=== PATIENT | female | born 1995 | race Caucasian/White ===

== ENCOUNTER 2025-02-10 07:15 | Observation (INO) | payer OTHER ==
[~2025-02-10] VITALS: Ht 154.9 cm; Wt 56.7 kg
[2025-02-10] VITALS (22 sets, daily range): BP systolic 84–102; BP diastolic 44–67
[2025-02-10] MEDS ORDERED: Ketorolac Tromethamine 30mg Vial IV ONE (07:50)
[2025-02-10] MEDS ORDERED: Ondansetron HCl 2 MG / ML 2ML Vial IV ONE (07:50)
[2025-02-10] MEDS ORDERED: NS 1,000 ML IV SCH ×2 (07:50→13:30)
[2025-02-10 08:08] LABS: BASOPHILS ABSOLUTE AUTO 0.04 K/mm3 (0.00-0.23); BASOPHILS PERCENT AUTO 0 % (0-2); EOSINOPHILS PERCENT AUTO 0 % (0-6); Hematocrit 41.4 % (33.0-51.0); Hemoglobin 15.3 g/dL (11.5-16.0); IMMATURE GRAN ABSOLUTE AUTO 0.06 K/mm3 (0.00-0.10); IMMATURE GRAN PERCENT AUTO 0 % (0-1); LYMPHOCYTES ABSOLUTE AUTO 1.37 K/mm3 (0.84-5.20); LYMPHOCYTES PERCENT AUTO 7 % (21-46); MONOCYTES ABSOLUTE AUTO 1.72 K/mm3 (0.16-1.47); MONOCYTES PERCENT AUTO 9 % (4-13); Mean Corpuscular HGB 31.8 pg (26.0-34.0); Mean Corpuscular Volume 86 fL (80-100); Mean Platelet Volume 9.4 fL (9.1-12.4); NEUTROPHILS PERCENT AUTO 84 % (41-73); Platelet Count 282 K/mm3 (150-400); RDW Coefficient Variation 11.9 % (11.7-14.2); RDW Standard Deviation 37.4 fL (35.1-46.3); Red Blood Cell Count 4.81 M/mm3 (3.80-5.20); White Blood Cell Count 20.19 K/mm3 (4.00-11.30)
[2025-02-10 08:30] LABS: Albumin, Blood 3.8 g/dL (3.4-5.0); Albumin/Globulin Ratio 1.1 (0.8-1.8); Bilirubin, Direct 0.3 mg/dL (0.0-0.3); Bilirubin, Indirect 0.9 mg/dL (0.1-0.7); Bilirubin, Total 1.2 mg/dL (0.1-1.0); Bun/Creatinine Ratio 12.8 (12.0-20.0); Calcium, Blood 9.1 mg/dL (8.5-10.1); Creatinine, Blood 0.62 mg/dL (0.40-1.00); Globulin, Blood 3.5 g/dL (2.2-4.0); Potassium, Blood 3.4 mmol/L (3.5-5.5); Total Protein, Blood 7.3 g/dL (6.4-8.2)
[2025-02-10] MEDS ORDERED: Piperacillin/Tazobactam Sod 3.375 GM in NS 100 ML IV ONE (10:00)
[2025-02-10] MEDS ORDERED: Morphine Sulfate 4 MG/1 ML Injection IV ONE (10:05)
[2025-02-10] MEDS ORDERED: FentaNYL Citrate 50 MCG/ML 2 ML Injection ONE ×2 (11:52→13:16)
[2025-02-10] MEDS ORDERED: propofoL 20 ML IV ONE (11:52)
[2025-02-10] MEDS ORDERED: Rocuronium Bromide 10 MG/ML 5ML Injection IV ONE (11:53)
[2025-02-10] MEDS ORDERED: SuccINYLCHOLINE Chloride 100 MG/5 ML 5MLSYR ONE (11:53)
[2025-02-10] MEDS ORDERED: Dexamethasone Sod Phos 10 MG/ML 1ML VIAL ONE (11:53)
[2025-02-10] MEDS ORDERED: Ondansetron HCl 2 MG / ML 2ML Vial ONE (11:53)
[2025-02-10] MEDS ORDERED: Bupivacaine 0.5% HCl 5 MG/ML 30MLVIAL ONE (12:00)
--- NOTE | 2025-02-10 12:13 | NUR ---
PT INTO PREOP FOR PRE PROCEDURE. BELONGINGS WITH PARTNER. VSS. ON RA. IV PATENT. RESTING EYES.
[2025-02-10] MEDS ORDERED: Lactated Ringer's 1,000 ML IV ONE ×2 (12:14→13:54)
[2025-02-10] MEDS ORDERED: Midazolam HCl 1MG / ML 2ML Vial ONE (12:42)
[2025-02-10] MEDS ORDERED: Ketorolac Tromethamine 30mg Vial ONE (13:08)
[2025-02-10] MEDS ORDERED: Sugammadex Sodium 200 MG/2ML SDV (100 MG/ML) ONE (13:13)
[2025-02-10] MEDS ORDERED: OxyCODONE HCL 5 MG TAB PO PRN (13:30)
[2025-02-10] MEDS ORDERED: Zolpidem Tartrate 10 MG Tab PO PRN (13:30)
[2025-02-10] MEDS ORDERED: FLU VACC TS2024-25(6MOS UP)/PF 45 MCG/0.5 ML SYRINGE IM ONE (13:30)
[2025-02-10] MEDS ORDERED: Ondansetron HCl 2 MG / ML 2ML Vial IV PRN (13:30)
[2025-02-10] MEDS ORDERED: HYDROmorphone HCl/Pf 1MG SYR IV PRN (13:35)
[2025-02-10] MEDS ORDERED: Ketorolac Tromethamine 30mg Vial IV PRN (13:40)
[2025-02-10] MEDS ORDERED: ePHEDrine Sulfate 50 MG/ML 1ML Injection ONE (13:52)
[2025-02-10] MEDS ORDERED: Piperacillin/Tazobactam Sod 3.375 GM in NS 100 ML IV SCH (18:00)
--- NOTE | 2025-02-10 18:11 | NUR ---
PATIENT IS ALERT AND ORIENTED AND COOPERATIVE WITH CARE. ON R. POD 0 FROM LAP APPY TODAY. 3 LAP SITES CLOSED WITH GLUE AND STERI STRIPS. C/O MINIMAL DISCOMFORT WITH MOVEMENT. TOLERATING HER DIET. POST OP VITALS HAVE BEEN STABLE. SOFT BP. BOYFRIEND AT THE BEDSIDE. [place]. PLAN IS TO STAY FOR IV ABX AND GO HOME TOMORROW
[2025-02-10] MEDS ORDERED: Acetaminophen 325 MG TABLET PO PRN (18:20)
[2025-02-11 00:08] VITALS: BP 97/52
[2025-02-11 04:10] VITALS: BP 100/52
--- NOTE | 2025-02-11 04:47 | NUR ---
SHIFT SUMMARY POD 1 LAP APPY. ABD INCISIONS W/TISSUE ADHESIVE AND STERI STRIPS CDI. PT DENIES N/V. TOLERATING GOOD PO INTAKE. PAIN MANAGED WITH TORADOL AND TYLENOL PRN. IND IN ROOM. IS VOIDING. ABX/IVF INFUSING PER ORDERS. PLAN FOR POSSIBLE DC HOME TODAY. WILL GIVE REPORT TO ONCOMING RN.
[2025-02-11 07:26] VITALS: BP 96/51
[2025-02-11] MEDS ORDERED: Enoxaparin 40 MG/0.4 ML SYR SC SCH (09:00)
[2025-02-11] MEDS ORDERED: OXAYDO5 M2 PO (10:18)
[2025-02-11 11:30] VITALS: BP 100/50
--- NOTE | 2025-02-11 12:31 | NUR ---
discharged VSS. DC'D IV, CATHETER INTACT. REVIEWED DC INSTRUCTIONS W/PT; VERBALIZED UNDERSTANDING. ALREADY HAD OXY PRESCRIPTION. ATE LUNCH. LEFT UNIT IN WC W/POSSESSIONS AND DC PAPERWORK IN HAND ACCOMPANIED BY SO.
== END 2025-02-11 12:15 | disposition home or self-care (01) ==
LOC: ER 07:15 → SURS 07:16
PROVIDERS: Student in an Organized Health Care Education/Training Program; ADMIT Surgery
PROC: 0DTJ0ZZ Resection of Appendix, Open Approach (ICD-10-PCS; principal; 2025-02-10 11:00)
DX: K35.33 Acute appendicitis with perforation, localized peritonitis, and gangrene, with abscess (principal)
CPT/HCPCS: 74177; 80048; 80076; 83690; 84703; 85025; 88304; 96374-59; 96375; 99285-25; A9270; G0378; J0330; J1100; J1650; J1885; J2250; J2270; J2405; J2543; J2704; J3010; J7030; J7120; Q9967